=== PATIENT | female | born 1995 | race Caucasian/White ===

== ENCOUNTER → 2019-03-21 15:45 | Outpatient (BNVA) | payer BC, SELFPAY | PROVIDERS: Family Provider Nurse Practitioner; PCP Family Medicine; Visit Provider Nurse Practitioner Women's Health | DX: Z11.3 Encounter for screening for infections with a predominantly sexual mode of transmission (principal); Z01.419 Encounter for gynecological examination (general) (routine) without abnormal findings; Z30.44 Encounter for surveillance of vaginal ring hormonal contraceptive device | CPT/HCPCS: 87491; 87591; 87661 ==

== ENCOUNTER → 2019-08-15 14:39 | Outpatient (BNVA) | payer BC, SELFPAY | PROVIDERS: Family Provider Nurse Practitioner; PCP Family Medicine; Visit Provider Dermatology | DX: L30.9 Dermatitis, unspecified (principal); L73.9 Follicular disorder, unspecified; L28.0 Lichen simplex chronicus | CPT/HCPCS: 99203; 99204 ==

== ENCOUNTER → 2019-10-17 08:25 | Outpatient (BNVA) | payer BC, SELFPAY | PROVIDERS: Family Provider Nurse Practitioner; PCP Family Medicine; Visit Provider Dermatology | DX: L40.8 Other psoriasis (principal); L30.9 Dermatitis, unspecified; L73.9 Follicular disorder, unspecified | CPT/HCPCS: 99213 ==

== ENCOUNTER 2020-07-10 09:30 | Outpatient (CLI) | payer BC, SELFPAY ==
--- NOTE | 2020-07-10 09:30 | US_ITS ---
WS: [id number] ULTRASOUND BREAST LEFT TECHNIQUE: Ultrasound left breast focused area of concern. CLINICAL INFORMATION: N63.20 - Unspecified lump in the left breast, unspecified quadrant COMPARISON: None. FINDINGS: Ultrasound left breast at the 2:00 position. Normal underlying parenchymal tissue. No cystic or solid lesions. No suspicious findings. US/US breast LT limited* [id number] IMPRESSION: Normal left breast ultrasound.
== END 2020-07-10 09:31 | disposition home or self-care (01) ==
PROVIDERS: PCP Family Medicine; Visit Provider Nurse Practitioner Women's Health
DX: N63.20 Unspecified lump in the left breast, unspecified quadrant (principal)
CPT/HCPCS: 76642

== ENCOUNTER → 2022-01-13 10:25 | Outpatient (BNVA) | payer BC, SELFPAY | PROVIDERS: PCP Family Medicine; Visit Provider Family Medicine | DX: Z13.9 Encounter for screening, unspecified (principal) | CPT/HCPCS: 86480; 86787 ==

== ENCOUNTER → 2022-01-27 09:27 | Outpatient (BNVA) | payer BC, SELFPAY | PROVIDERS: PCP Family Medicine; Visit Provider Clinical Nurse Specialist Adult Health | DX: J02.9 Acute pharyngitis, unspecified (principal) | CPT/HCPCS: 87880 ==

== ENCOUNTER → 2022-06-21 13:08 | Outpatient (BNVA) | payer BC, SELFPAY | PROVIDERS: PCP Family Medicine; Visit Provider Family Medicine | DX: R73.09 Other abnormal glucose (principal); E34.9 Endocrine disorder, unspecified; R53.83 Other fatigue | CPT/HCPCS: 80053; 82607; 83036; 84443; 85025 ==